=== PATIENT | female | born 1985 | race Caucasian/White ===

== ENCOUNTER 2017-06-15 22:13 | Emergency (ER) | payer OTHER ==
[~2017-06-15] VITALS: Ht 177.8 cm; Wt 130.6 kg
[~2017-06-15 22:13] MED LIST: DARV PO; ROBA750T3 PO
[2017-06-15 22:15] VITALS: BP 162/89; PULSE 98; RESP 20; TEMP 102.2; O2SAT 99
[2017-06-15] MEDS ORDERED: diphenhydrAMINE HCL 50 MG/ML VIAL IV PUSH ONE (23:15)
[2017-06-15] MEDS ORDERED: ACETAMINOPHEN 325 MG TAB PO ONE (23:15)
[2017-06-15] MEDS ORDERED: SODIUM CHLOR 0.9% 1000 ML INJ 1,000 ML IV ONE (23:15)
[2017-06-15] MEDS ORDERED: BACT800T5 PO (23:18)
[2017-06-15] MEDS ORDERED: IBUP-232 PO (23:18)
[2017-06-15] MEDS ORDERED: BENA25CA4 (23:18)
--- NOTE | 2017-06-15 23:22 | PD ---
HPI Chief Complaint: Skin Problem Time Seen by Provider: 22:56 Travel History International Travel<30 days: No Contact w/Intl Traveler<30days: No Traveled to known affect area: No History of Present Illness HPI 32yo F with no significant PMH presents to the ED with c/o rash that started today. Said she went to urgent care for an abscess behind her neck 9 days ago and was prescribed bactrim. Pt last took bactrim this morning and is day 9. She started having fever last night and today noticed rash started in bilateral feet and leg. Said rash got better after benadryl at 3pm and traveled up to her abdomen, chest and now face. Pt also complains of tender lymph nodes in right neck and generalized bodyaches. Denies any chest pain, sob, n/v, abdominal pain, focal weakness or numbness. PFSH Past Medical History ?: Unknown LMP: 05 27 17 Social History Alcohol Use: Yes Tobacco Use: No Substance Use: No Allergies-Medications (Allergen,Severity, Reaction): Coded Allergies: No Known Allergies (Unverified , 06/15/17) Reported Meds & Prescriptions Reported Meds & Active Scripts Active Reported Benadryl Allergy (Diphenhydramine HCl) 25 Mg Cap Ibuprofen 600 Mg Tab 600 Mg PO Q6H PRN Bactrim DS (Sulfamethoxazole-Trimethoprim) 800-160 Mg Tab 1 Tab PO BID Review of Systems Except as stated in HPI: all other systems reviewed are Neg Physical Exam Narrative GENERAL: 32yo F in mild distress. SKIN: Diffuse erythematous macules that looks morbilliform that have formed into plaques in upper back and chest, it is more pinpoint erythematous macules in extremities and abdomen. Erythematous plaques on bilateral maxilla. Spares the sole and no mucosal involvement. HEAD: Atraumatic. Normocephalic. EYES: Pupils equal and round. No scleral icterus. No injection or drainage. ENT: Throat: Clear. Uvula midline. No swelling in uvula. NECK: Abscess in back of neck is gone. +TTP right anterior and posterior cervical lymph node. CARDIOVASCULAR: Regular rate and rhythm. No murmur appreciated. RESPIRATORY: No accessory muscle use. Clear to auscultation. Breath sounds equal bilaterally. GASTROINTESTINAL: Abdomen soft, non-tender, nondistended. No rebound tenderness or guarding. MUSCULOSKELETAL: No obvious deformities. No clubbing. No cyanosis. No edema. NEUROLOGICAL: Awake and alert. No obvious cranial nerve deficits. Motor grossly within normal limits. Normal speech. PSYCHIATRIC: Appropriate mood and affect; insight and judgment normal. Data Data Last Documented VS Orders Orders Complete Blood Count With Diff (06/15/17 23:07) Basic Metabolic Panel (Bmp) (06/15/17 23:07) Prothrombin Time / Inr (Pt) (06/15/17 23:07) Act Partial Throm Time (Ptt) (06/15/17 23:07) Lactic Acid Sepsis Protocol (06/15/17 23:07) Sodium Chlor 0.9% 1000 Ml Inj (Ns 1000 M (06/15/17 23:15) Diphenhydramine Inj (Benadryl Inj) (06/15/17 23:15) Acetaminophen (Tylenol) (06/15/17 23:15) Influenzae A/B Antigen (06/15/17 23:22) Methylprednisolone So Succ Inj (Solumedr (06/16/17 00:30) Hepatic Functional Panel (06/15/17 23:20) Urinalysis - C+S If Indicated (06/16/17 01:50) Ed Discharge Order (06/16/17 02:22) Labs Laboratory Tests Test 06/15/17 23:20 06/16/17 01:56 White Blood Count 4.2 TH/MM3 Red Blood Count 4.32 MIL/MM3 Hemoglobin 12.1 GM/DL Hematocrit 35.4 % Mean Corpuscular Volume 81.8 FL Mean Corpuscular Hemoglobin 28.0 PG Mean Corpuscular Hemoglobin Concent 34.3 % Red Cell Distribution Width 11.9 % Platelet Count 147 TH/MM3 Mean Platelet Volume 8.9 FL Neutrophils (%) (Auto) 68.9 % Lymphocytes (%) (Auto) 19.6 % Monocytes (%) (Auto) 6.3 % Eosinophils (%) (Auto) 2.0 % Basophils (%) (Auto) 3.2 % Neutrophils # (Auto) 2.9 TH/MM3 Lymphocytes # (Auto) 0.8 TH/MM3 Monocytes # (Auto) 0.3 TH/MM3 Eosinophils # (Auto) 0.1 TH/MM3 Basophils # (Auto) 0.1 TH/MM3 CBC Comment DIFF FINAL Differential Comment Prothrombin Time 10.7 SEC Prothromb Time International Ratio 1.0 RATIO Activated Partial Thromboplast Time 26.6 SEC Blood Urea Nitrogen 13 MG/DL Creatinine 0.76 MG/DL Random Glucose 112 MG/DL Total Protein 7.1 GM/DL Albumin 3.4 GM/DL Calcium Level 8.2 MG/DL Alkaline Phosphatase 60 U/L Aspartate Amino Transf (AST/SGOT) 11 U/L Alanine Aminotransferase (ALT/SGPT) 17 U/L Total Bilirubin 0.4 MG/DL Direct Bilirubin 0.1 MG/DL Sodium Level 136 MEQ/L Potassium Level 3.5 MEQ/L Chloride Level 104 MEQ/L Carbon Dioxide Level 25.7 MEQ/L Anion Gap 6 MEQ/L Estimat Glomerular Filtration Rate 88 ML/MIN Lactic Acid Level 1.4 mmol/L Indirect Bilirubin 0.3 MG/DL Urine Color YELLOW Urine Turbidity CLEAR Urine pH 6.0 Urine Specific [place] 1.020 Urine Protein NEG mg/dL Urine Glucose (UA) NEG mg/dL Urine Ketones NEG mg/dL Urine Occult Blood NEG Urine Nitrite NEG Urine Bilirubin NEG Urine Leukocyte Esterase NEG Urine RBC 0-2 /hpf Urine WBC 0-2 /hpf Urine Squamous Epithelial Cells 6-8 /hpf Urine Bacteria NONE /hpf Microscopic Urinalysis Comment CULT NOT INDICATED MDM Medical Decision Making Medical Screen Exam Complete: Yes Emergency Medical Condition: Yes Differential Diagnosis Drug eruption vs. allergic reaction to bactrim vs. drug hypersensitivity syndrome vs. erythema multiforme Narrative Course 32yo F with c/o generalized body aches and rash today. Said feels like her joints hurt. Has pain in her lymph nodes in her right neck. Had fever starting last night. Pt is on day 9 of bactrim and has never taken bactrim before. Pt is febrile at 102.2F. Last took ibuprofen at around 3pm. Will do labs, give diphenhydramine and NS IVF as well as acetaminophen. Will check influenza. Labs reviewed, no leukocytosis. Mild thrombocytopenia at 147,000. Lactic acid normal. Creatinine normal. Pt given NS IVF, diphenhydramine and methylprednisolone 60mg IV. Sign out to next team to follow up LFT, influenza and reevaluate. Diagnosis Primary Impression: Drug eruption Sariah Grimm DO Jun 15, 2017 23:22
[2017-06-15 23:36] LABS: AUTOMATED NEUTROPHIL # 2.9 TH/MM3 (1.8-7.7); BASOPHIL # 0.1 TH/MM3 (0-0.2); BASOPHIL % 3.2 % (0.0-2.0); EOSINOPHIL # 0.1 TH/MM3 (0-0.4); HEMATOCRIT 35.4 % (35.0-46.0); HEMOGLOBIN 12.1 GM/DL (11.6-15.3); LYMPH % 19.6 % (9.0-44.0); LYMPHOCYTE # 0.8 TH/MM3 (1.0-4.8); MEAN CELL VOLUME 81.8 FL (80.0-100.0); MEAN CORPUSCULAR HGB CONC 34.3 % (32.0-36.0); MEAN PLATELET VOLUME 8.9 FL (7.0-11.0); MONO % 6.3 % (0.0-8.0); MONOCYTE # 0.3 TH/MM3 (0-0.9); NEUT % 68.9 % (16.0-70.0); PLATELET COUNT 147 TH/MM3 (150-450); RED BLOOD COUNT 4.32 MIL/MM3 (4.00-5.30); RED CELL DISTRIBUTION WIDTH 11.9 % (11.6-17.2); WHITE BLOOD COUNT 4.2 TH/MM3 (4.0-11.0)
[2017-06-15 23:48] LABS: BICARBONATE 25.7 MEQ/L (21.0-32.0); CALCIUM 8.2 MG/DL (8.5-10.1)
[2017-06-15 23:51] LABS: PROTHROMBIN TIME - PATIENT 10.7 SEC (9.8-11.6)
[2017-06-15 23:52] LABS: CREATININE 0.76 MG/DL (0.50-1.00)
[2017-06-16] MEDS ORDERED: methylPREDNISolone SOD SUCC 125 MG/2 ML VIAL IV PUSH ONE (00:30)
--- NOTE | 2017-06-16 00:30 | PD ---
Physical Exam Date Seen by Provider: Jun 16, 2017 Time Seen by Provider: 00:29 Narrative Accepted in transfer of care from Dr. Grimm Data Data Last Documented VS Vital Signs Date Time Temp Pulse Resp B/P (MAP) Pulse Ox O2 Delivery O2 Flow Rate FiO2 06/16/17 01:05 100.4 85 16 134/64 (87) 97 Room Air Orders Orders Complete Blood Count With Diff (06/15/17 23:07) Basic Metabolic Panel (Bmp) (06/15/17 23:07) Prothrombin Time / Inr (Pt) (06/15/17 23:07) Act Partial Throm Time (Ptt) (06/15/17 23:07) Lactic Acid Sepsis Protocol (06/15/17 23:07) Sodium Chlor 0.9% 1000 Ml Inj (Ns 1000 M (06/15/17 23:15) Diphenhydramine Inj (Benadryl Inj) (06/15/17 23:15) Acetaminophen (Tylenol) (06/15/17 23:15) Influenzae A/B Antigen (06/15/17 23:22) Methylprednisolone So Succ Inj (Solumedr (06/16/17 00:30) Hepatic Functional Panel (06/15/17 23:20) Urinalysis - C+S If Indicated (06/16/17 01:50) Ed Discharge Order (06/16/17 02:22) Labs Laboratory Tests Test 06/15/17 23:20 06/16/17 01:56 White Blood Count 4.2 TH/MM3 Red Blood Count 4.32 MIL/MM3 Hemoglobin 12.1 GM/DL Hematocrit 35.4 % Mean Corpuscular Volume 81.8 FL Mean Corpuscular Hemoglobin 28.0 PG Mean Corpuscular Hemoglobin Concent 34.3 % Red Cell Distribution Width 11.9 % Platelet Count 147 TH/MM3 Mean Platelet Volume 8.9 FL Neutrophils (%) (Auto) 68.9 % Lymphocytes (%) (Auto) 19.6 % Monocytes (%) (Auto) 6.3 % Eosinophils (%) (Auto) 2.0 % Basophils (%) (Auto) 3.2 % Neutrophils # (Auto) 2.9 TH/MM3 Lymphocytes # (Auto) 0.8 TH/MM3 Monocytes # (Auto) 0.3 TH/MM3 Eosinophils # (Auto) 0.1 TH/MM3 Basophils # (Auto) 0.1 TH/MM3 CBC Comment DIFF FINAL Differential Comment Prothrombin Time 10.7 SEC Prothromb Time International Ratio 1.0 RATIO Activated Partial Thromboplast Time 26.6 SEC Blood Urea Nitrogen 13 MG/DL Creatinine 0.76 MG/DL Random Glucose 112 MG/DL Total Protein 7.1 GM/DL Albumin 3.4 GM/DL Calcium Level 8.2 MG/DL Alkaline Phosphatase 60 U/L Aspartate Amino Transf (AST/SGOT) 11 U/L Alanine Aminotransferase (ALT/SGPT) 17 U/L Total Bilirubin 0.4 MG/DL Direct Bilirubin 0.1 MG/DL Sodium Level 136 MEQ/L Potassium Level 3.5 MEQ/L Chloride Level 104 MEQ/L Carbon Dioxide Level 25.7 MEQ/L Anion Gap 6 MEQ/L Estimat Glomerular Filtration Rate 88 ML/MIN Lactic Acid Level 1.4 mmol/L Indirect Bilirubin 0.3 MG/DL Urine Color YELLOW Urine Turbidity CLEAR Urine pH 6.0 Urine Specific [place] 1.020 Urine Protein NEG mg/dL Urine Glucose (UA) NEG mg/dL Urine Ketones NEG mg/dL Urine Occult Blood NEG Urine Nitrite NEG Urine Bilirubin NEG Urine Leukocyte Esterase NEG Urine RBC 0-2 /hpf Urine WBC 0-2 /hpf Urine Squamous Epithelial Cells 6-8 /hpf Urine Bacteria NONE /hpf Microscopic Urinalysis Comment CULT NOT INDICATED MDM Medical Record Reviewed: Yes Supervised Visit with KAYE: No Interpretation(s) influenza a/b ag: negative CBC & BMP Diagram 06/15/17 23:20 Total Protein 7.1, Albumin 3.4, Calcium Level 8.2 L, Alkaline Phosphatase 60, Aspartate Amino Transf (AST/SGOT) 11 L, Alanine Aminotransferase (ALT/SGPT) 17, Total Bilirubin 0.4, Direct Bilirubin 0.1 Vital Signs Date Time Temp Pulse Resp B/P (MAP) Pulse Ox O2 Delivery O2 Flow Rate FiO2 06/16/17 01:05 100.4 85 16 134/64 (87) 97 Room Air 06/15/17 22:15 102.2 98 20 162/89 (113) 99 POC hcg: negative Differential Diagnosis Accepted in transfer of care from Dr. Grimm; please refer to her dictation Narrative Course Accepted in transfer of care from Dr. Grimm for follow up of labs and for disposition At 1:45 AM patient is sleeping and in no apparent distress; influenza antigen A/ B: Negative It's 2:20 AM patient is clinically stable no findings for Mulligan-Ren syndrome or TEN; patient is taking oral hydration well; patient demonstrated good urine output; temperature has decreased to 100.4 after acetaminophen; blood pressure heart rate stable. Patient is newly established to [facility] and has not seen her assigned physician. Patient's case discussed with on-call provider Will see patient in the office tomorrow. Patient given no work status 2 days encouraged to return immediately to the emergency department if any soreness of the mouth or inability to tolerate oral hydration or any concerns. Physician Communication Physician Communication discussed with Dr Flores --extended hours clinic Ada Lobo -- Diagnosis Primary Impression: Drug eruption Referrals: Primary Care Physician 1 day Extended hours clinic -- [phone] Patient Instructions: General Instructions Departure Forms: Tests/Procedures, Work Release Special Instructions: no work x 2 days Additional Instruction: Increase fluid hydration Avoid overheating Take acetaminophen as needed for fever 100.4F or greater or for minor pain Follow-up with primary care provider Return to the emergency department immediately for any concerns or change in condition Med/Other Pt SpecificInfo: Med Stopped (stop bactrim) Genie Almazan MD Jun 16, 2017 00:30
[2017-06-16 00:31] LABS: ALBUMIN 3.4 GM/DL (3.4-5.0)
[2017-06-16 00:33] LABS: DIRECT BILIRUBIN ADULT 0.1 MG/DL (0.0-0.2)
[2017-06-16 00:35] LABS: INDIRECT BILIRUBIN 0.3 MG/DL (0.0-0.8); TOTAL BILIRUBIN ADULT 0.4 MG/DL (0.2-1.0); TOTAL PROTEIN 7.1 GM/DL (6.4-8.2)
[2017-06-16 01:05] VITALS: BP 134/64; PULSE 85; RESP 16; TEMP 100.4; O2SAT 97
[2017-06-16 01:59] LABS: BILIRUBIN, URINE NEG (NEG); BLOOD, URINE NEG (NEG); GLUCOSE,URINE NEG (NEG); KETONE, URINE NEG (NEG); NITRITE,URINE NEG (NEG); URINE LEUKOCYTE ESTERASE NEG (NEG)
[2017-06-16 02:05] LABS: URINE COLOR YELLOW (YELLW/STRAW)
[2017-06-16 02:06] LABS: RBC, URINE 0-2 /hpf (0-3); WBC, URINE 0-2 /hpf (0-5)
[2017-06-16 02:55] VITALS: BP 129/80; TEMP 100.2
== END 2017-06-16 02:59 | disposition home or self-care (01) ==
LOC: PHED 22:13
DX: L27.0 Generalized skin eruption due to drugs and medicaments taken internally (principal); D69.6 Thrombocytopenia, unspecified
CPT/HCPCS: 80048; 80076; 81001; 83605; 85025; 85610; 85730; 87804; 96361; 96374; 96375; 99284; J1200; J2930; J7030

== ENCOUNTER 2018-07-19 16:46 | Inpatient (IN) ==
--- NOTE | 2018-07-19 17:30 | P.HPOB ---
History of Present Illness Primary Care Physician: No Primary Care Physician History of Present Illness: 33 yo G1 at 30w4d by 8w US (MATT 09/27/18) seen today in the clinic for routine OB visit and was found to have new elevated BPs (140s/70 then 160/90 on recheck, however I do not believe the cuff was large enough for the patient). Pt denies sn/sx of preeclampsia, no hx of HTN or elevated BPs during , has been on aspirin for preeclampsia ppx. Other than patients obesity the has been uncomplicated. 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, is a teacher Surgical hx: 2006 = gallstone pancreatitis (per records review) Review of Systems All other systems reviewed negative except as stated in HPI Medications and Allergies Allergies Allergy/AdvReac Type Severity Reaction Status Date / Time Sulfa (Sulfonamide Allergy Severe Fever Verified 07/19/18 17:44 Antibiotics) Exam - Constitutional no acute distress - Routine HEENT Exam Head: Present: normocephalic Eye: Present: EOMI - Routine Neck Exam Present: full ROM - Routine Respiratory Exam Present: CTA bilaterally - Routine Cardiovascular Exam Present: RRR - Routine Abdominal Exam Present: soft - Routine Exam Comments: deferred - Routine Extremities Exam Comments: NO edema, patellar DTRs 1+ - Additional findings Additional findings: BP range: 139-151/62-71 FHTs: 140s moderate variability, no deceleration, accelerations present TOCO: no contractions Results - Labs CBC & Chem 7: 07/19/18 17:28 07/19/18 17:28 Caprini VTE Risk Assessment Caprini VTE Risk Assessment: No/Low Risk (score <= 1) Caprini Risk Assessment Model: Point Value = 1 Point Value = 2 Point Value = 3 Point Value = 5 Age 41-60 Minor surgery BMI > 25 kg/m2 Swollen legs Varicose veins or History of unexplained or recurrent spontaneous Oral contraceptives or hormone replacement Sepsis (< 1 month) Serious lung disease, including pneumonia (< 1 month) Abnormal pulmonary function Acute myocardial infarction Congestive heart failure (< 1 month) History of inflammatory bowel disease Medical patient at bed rest Age 61-74 Arthroscopic surgery Major open surgery (> 45 min) Laparoscopic surgery (> 45 min) Malignancy Confined to bed (> 72 hours) Immobilizing plaster cast Central venous access Age >= 75 History of VTE Family history of VTE Factor V Leiden Prothrombin [id number] Lupus anticoagulant Anticardiolipin antibodies Elevated serum homocysteine Heparin-induced thrombocytopenia Other congenital or acquired thrombophilia Stroke (< 1 month) Elective arthroplasty Hip, pelvis, or leg fracture Acute spinal cord injury (< 1 month) Prophylaxis Regimen: Total Risk Factor Score Risk Level Prophylaxis Regimen 0-1 Low Early ambulation 2 Moderate Order ONE of the following: *Sequential Compression Device (SCD) *Heparin 5000 units SQ BID 3-4 Higher Order ONE of the following medications: *Heparin 5000 units SQ TID *Enoxaparin/Lovenox 40 mg SQ daily (WT < 150 kg, CrCl > 30 mL/min) *Enoxaparin/Lovenox 30 mg SQ daily (WT < 150 kg, CrCl > 10-29 mL/min) *Enoxaparin/Lovenox 30 mg SQ BID (WT < 150 kg, CrCl > 30 mL/min) AND/OR *Sequential Compression Device (SCD) 5 or more Highest Order ONE of the following medications: *Heparin 5000 units SQ TID (Preferred with Epidurals) *Enoxaparin/Lovenox 40 mg SQ daily (WT < 150 kg, CrCl > 30 mL/min) *Enoxaparin/Lovenox 30 mg SQ daily (WT < 150 kg, CrCl > 10-29 mL/min) *Enoxaparin/Lovenox 30 mg SQ BID (WT < 150 kg, CrCl > 30 mL/min) AND *Sequential Compression Device (SCD) Assessment and Plan - Plan 33 yo G1 at 30w4d by 8w US (MATT 09/27/18) here for r/o preeclampsia 1. IUP: Cat 1 tracing, BID EFM and TOCO - Female fetus, ant placenta - Nursing to collect GBS. 2. Elevated BPs: No sn/sx of preeclampsia, HELLP and P:C WNL, BPs in triage have been mostly mild range, will keep patient for 23hr obs and collect 24hr urine protein, repeat HELLP labs in AM, trend blood pressure and perform US EFW tomorrow. Will hold on [facility] at this time. Relayed this info to nurse to inform the patient, offered to talk to pt now via phone if she desired if not i will see her in the AM and discuss further. 3. Obesity: passed 1 hour
[2018-07-19 17:46] LABS: Hematocrit 31.7 % (35.0-46.0); Hemoglobin 11.3 gm/dL (11.6-15.3); Mean Corpuscular HGB Conc 35.6 % (32.0-36.0); Mean Corpuscular Hemoglobin 29.6 pg (27.0-34.0); Mean Corpuscular Volume 83.3 fL (80.0-100.0); Mean Platelet Volume 8.9 fL (7.0-11.0); Platelet Count 193 th/mm3 (150-450); Red Cell Distribution Width 14.3 % (11.6-17.2); White Blood Count 11.4 th/mm3 (4.0-11.0)
[2018-07-19 18:01] LABS: Bacteria,Urine Rare /hpf; Bilirubin,Urine Negative (Negative); Clarity,Urine Hazy (Clear); Color,Urine Yellow (Yellw/Straw); Glucose,Urine (UA) Negative (Negative); Hyaline Casts,Urine 1 /lpf (0-3); Leukocyte Esterase,Urine Negative (Negative); Mucus,Urine Few /lpf (Occasional); Nitrite,Urine Negative (Negative); Specific Gravity,Urine 1.025 (1.002-1.035); Squamous Epithelial Cell,Urine 2 /hpf (0-5)
[2018-07-19 18:07] LABS: Protein/Creatinine Ratio,Urine 0.1 (0.00-0.14); Total Protein,Urine Random 15.6 mg/dL (0-11.8)
[2018-07-19 18:15] LABS: Albumin 3.1 g/dL (3.4-5.0); Anion Gap 7 meq/L (5-15); Aspartate Aminotransferase 10 U/L (15-37); Blood Urea Nitrogen 10 mg/dL (7-18); Carbon Dioxide 24.3 meq/L (21.0-32.0); Chloride 105 meq/L (98-107); Glomerular Filtration Rate Greater Than 89 mL/min (>89); Glucose,Random 87 mg/dL (74-106); Potassium 3.7 meq/L (3.5-5.1); Sodium 136 meq/L (136-145)
[2018-07-19 18:16] LABS: Alanine Aminotransferase 18 U/L (10-53)
[2018-07-19 18:18] LABS: Alkaline Phosphatase 77 U/L (45-117); Total Protein 7.3 g/dL (6.4-8.2)
[2018-07-19] MEDS ORDERED: Acetaminophen 325 MG Tablet PO PRN (18:24)
[2018-07-19 23:10] VITALS: RESP 18
[2018-07-20 08:38] LABS: Hematocrit 30.2 % (35.0-46.0); Hemoglobin 10.8 gm/dL (11.6-15.3); Mean Corpuscular HGB Conc 35.8 % (32.0-36.0); Mean Corpuscular Hemoglobin 29.5 pg (27.0-34.0); Mean Corpuscular Volume 82.5 fL (80.0-100.0); Mean Platelet Volume 9.3 fL (7.0-11.0); Platelet Count 179 th/mm3 (150-450); Red Blood Count 3.66 mil/mm3 (4.00-5.30); Red Cell Distribution Width 14.3 % (11.6-17.2); White Blood Count 9.2 th/mm3 (4.0-11.0)
--- NOTE | 2018-07-20 08:42 | P.OBGPN ---
S: No complaints, no contractions, headaches, blurry vision or epigastric pain. O: FHTs: 130-140 moderate variability, accelerations present, no decelerations Tocometry: No contractions 33 yo G1 at 30w5d by 8w US (MATT 09/27/18) here for r/o preeclampsia 1. IUP: Cat 1 tracing, BID EFM and TOCO - Female fetus, ant placenta, EFW done this AM and verbal report from clerical grader was normal EFW - GBS pending 2. Elevated BPs: No sn/sx of preeclampsia, HELLP and P:C WNL, BP range since 8pm all normal, does not meet criteria for preeclampsia or GHTN at this time. Plan: - finish 24hr urine protein and d/c home if BPs are Normotensive to mild range until then. - Discussed preeclampsia precautions, when to call or present to L&D if blood pressure criteria of 160 systolic and/or greater than 110 or persistent neuro sx. Pt to collect home BP log - FU next week in the office with BPP.
[2018-07-20 09:02] LABS: Albumin 2.8 g/dL (3.4-5.0); Anion Gap 8 meq/L (5-15); Aspartate Aminotransferase 12 U/L (15-37); Blood Urea Nitrogen 7 mg/dL (7-18); Calcium 8.3 mg/dL (8.5-10.1); Carbon Dioxide 22.5 meq/L (21.0-32.0); Chloride 107 meq/L (98-107); Glomerular Filtration Rate Greater Than 89 mL/min (>89); Glucose,Random 85 mg/dL (74-106); Potassium 3.6 meq/L (3.5-5.1); Sodium 137 meq/L (136-145)
[2018-07-20 09:03] LABS: Alanine Aminotransferase 15 U/L (10-53)
[2018-07-20 09:05] LABS: Alkaline Phosphatase 77 U/L (45-117); Total Protein 6.7 g/dL (6.4-8.2)
[2018-07-20 15:21] VITALS: TEMP 98.9
[2018-07-20 15:23] VITALS: BP 147/61; PULSE 76
== END 2018-07-20 19:09 | disposition home or self-care (01) ==
LOC: HOBED 16:46 → H2E 18:34
PROVIDERS: ADMIT Obstetrics & Gynecology; ATTEND Obstetrics & Gynecology